=== PATIENT | male | born 1995 | race Caucasian/White ===

== ENCOUNTER 2018-01-16 05:24 | Emergency (ER) | payer SELFPAY ==
--- NOTE | 2018-01-16 06:08 | NUR ---
CALLED FOR PT NO ANSWER LWBT
== END 2018-01-16 06:10 | disposition left against medical advice (07) ==
LOC: ER 05:35
DX: Z53.21 Procedure and treatment not carried out due to patient leaving prior to being seen by health care provider (principal)